=== PATIENT | female | born 1995 | race Asian ===

== ENCOUNTER 2023-10-23 05:55 | Day surgery (SDC) | payer BC ==
[~2023-10-23] VITALS: Ht 157.5 cm; Wt 61.2 kg
[2023-10-23 06:52] LABS: HCG,QUAL RESULT NEGATIVE (NEGATIVE)
[2023-10-23] MEDS ORDERED: KETOROLAC TROMETHAMINE 30 MG VIAL IVP PRN (08:30)
[2023-10-23] MEDS ORDERED: LR 1,000 ML IV SCH (08:30)
[2023-10-23] MEDS ORDERED: ONDANSETRON HCL 4 MG/2 ML VIAL IVP PRN (08:30)
[2023-10-23] MEDS ORDERED: LIDOCAINE/EPI 1% 1:100000 20 ML VIAL ONE (08:55)
[2023-10-23] MEDS ORDERED: MIDAZOLAM HCL 5 MG/ML VIAL (VERSED) IV ONE (08:55)
[2023-10-23] MEDS ORDERED: GLYCOPYRROLATE 0.2 MG/ML VIAL ONE (08:55)
[2023-10-23] MEDS ORDERED: ROCURONIUM BROMIDE 10 MG/ML (ZEMURON) ONE (08:55)
[2023-10-23] MEDS ORDERED: ONDANSETRON HCL 4 MG/2 ML VIAL ONE (08:55)
[2023-10-23] MEDS ORDERED: PROPOFOL 200MG/ 20ML VIAL (DIPRIVAN) IV ONE (08:55)
[2023-10-23] MEDS ORDERED: SUCCINYLCHOLINE CHLORIDE 20 MG/ML(QUELICIN) ONE (08:55)
[2023-10-23] MEDS ORDERED: SEVOFLURANE 15 MIN GAS INH ONE (08:55)
[2023-10-23] MEDS ORDERED: LR 1,000 ML IV.SOLN IV ONE (08:55)
[2023-10-23] MEDS ORDERED: fentaNYL CITRATE/PF 100 MCG/2 ML AMP ONE (08:55)
[2023-10-23] MEDS ORDERED: METOCLOPRAMIDE HCL 10 MG/2 ML VIAL ONE (08:55)
[2023-10-23] MEDS ORDERED: WATER FOR IRRIGATION,STERILE 1,000 ML IRRIG.SOLN IR ONE (08:55)
[2023-10-23] MEDS ORDERED: NS IRRIG SOLN 1000 ML IR ONE (08:55)
[2023-10-23 09:22] VITALS: O2SAT 99
[2023-10-23 16:47] VITALS: BP_SYST 127; PULSE 77; RESP 18
== END 2023-10-23 11:00 | disposition home or self-care (01) ==
LOC: SDS 05:55
PROVIDERS: ATTEND Otolaryngology
DX: T17.1XXA Foreign body in nostril, initial encounter (principal); J34.89 Other specified disorders of nose and nasal sinuses; J32.9 Chronic sinusitis, unspecified; D38.5 Neoplasm of uncertain behavior of other respiratory organs; Z98.890 Other specified postprocedural states; W44.8XXA Other foreign body entering into or through a natural orifice, initial encounter; Y93.89 Activity, other specified; Y92.89 Other specified places as the place of occurrence of the external cause
CPT/HCPCS: 30310; 31240; 84703; 88305; 88311; J3490; J2765; J2250; J2405; J2704; J0330; J3010; J7120